=== PATIENT | female | born 1955 | race Caucasian/White ===

== ENCOUNTER 2017-08-22 10:23 | Day surgery (SDC) | payer OTHER ==
[~2017-08-22 10:23] MED LIST: CEFAZOLIN 2 GM-D5W BAG** 2 GM/50 ML ML IV ONE; CEFAZOLIN 2 GM-D5W BAG** 2 GM/50 ML ML IV SCH; KEFZOL 1 GM ONE; Lactated Ringers 1,000 ML IV ONE; Lactated Ringers 1,000 ML IV SCH; Sensorcaine 0.25% 10 ML ONE
[2017-08-22] MEDS ORDERED: Zofran 4 MG/2 ML VIAL IV ONE (10:24)
[2017-08-22] MEDS ORDERED: BRIDION 200MG/2ML IV ONE (10:24)
[2017-08-22] MEDS ORDERED: SUBLIMAZE 100 MCG/2 ML IV ONE (10:24)
[2017-08-22] MEDS ORDERED: Decadron 4 MG INJ IV ONE (10:24)
[2017-08-22] MEDS ORDERED: DIPRIVAN 200 MG/20 ML IV ONE (10:24)
[2017-08-22] MEDS ORDERED: Quelicin Fliptop 200 MG/10 ML IV ONE (10:24)
[2017-08-22] MEDS ORDERED: Zemuron 100 MG/10 ML IV ONE (10:24)
[2017-08-22] MEDS ORDERED: TORAdol 30 mg Injection IV ONE (10:24)
--- NOTE | 2017-08-22 11:26 | HP ---
DATE OF SURGERY: 08/22/2017 ADMISSION DIAGNOSIS: Ventral hernia. ANTICIPATED PROCEDURE: Repair. HISTORY OF PRESENT ILLNESS: The patient has a moderate sized ventral abdominal hernia upper mid abdomen. PAST MEDICAL HISTORY: ALLERGIES: NONE. MEDICATIONS: None. PAST SURGICAL HISTORY: Gallbladder, hysterectomy, tumor of the back. SOCIAL HISTORY: One and a half packs per day. ETOH negative. FAMILY HISTORY: Negative. PHYSICAL EXAMINATION: VITAL SIGNS: Normal. CHEST: Clear. COR: Regular. IMPRESSION: Upper epigastric ventral abdominal hernia midline just to the right. PLAN: Repair.
[2017-08-22] MEDS ORDERED: Zofran 4 MG/2 ML VIAL ONE (13:13)
--- NOTE | 2017-08-22 14:07 | OP ---
SURGERY DATE/TIME: 08/22/2017 1208 PREOPERATIVE DIAGNOSIS: Symptomatic ventral hernia. POSTOPERATIVE DIAGNOSIS: Symptomatic ventral hernia. PROCEDURE: Ventral herniorrhaphy with mesh. SURGEON: Umair Loyola M.D. ANESTHESIA: General. COMPLICATIONS: None. CONDITION: Stable. INDICATION: A patient with symptomatic ventral abdominal hernia. DESCRIPTION OF PROCEDURE: Taken to surgery. General anesthetic. Routine prep and drape. A limited 3 inch transverse incision. The sac was 4 x 4 inches. The base was 1 inch. It was taken down to the base. The omentum was incarcerated. It was taken from the adhesions on the sac and reduced. The sac was then totally removed. Hemostasis of the edge was satisfactory. A Bicomponent moderate sized mesh with absorbing inner layer was placed, was pulled up, was secured with four quadrant sutures, of intraquadrant sutures. Good approximation and hemostasis. No tension. Subcu closed with 3-0 Vicryl, skin closed with 4-0 Vicryl and Steri-Strips applied. Sterile dressing applied. The patient tolerated the procedure satisfactorily.
[2017-08-22 14:49] VITALS: PULSE 72
[2017-08-22 14:54] VITALS: BP 111/69; O2SAT 94
== END 2017-08-22 14:30 | disposition home or self-care (01) ==
LOC: SDC 10:23
PROVIDERS: ATTEND Surgery
PROC: 0WUF0JZ Supplement Abdominal Wall with Synthetic Substitute, Open Approach (ICD-10-PCS; principal; 2017-08-22)
DX: K43.9 Ventral hernia without obstruction or gangrene (principal)
CPT/HCPCS: 00832; 93005; J0330; J0690; J1100; J1885; J2405; J2704; J3010; L0625

== ENCOUNTER 2018-07-15 15:02 | Emergency (ER) | payer OTHER ==
--- NOTE | 2018-07-15 15:37 | ERPHSYRPT ---
- History of Present Illness Time Seen by Provider: 07/15/18 15:25 Source: patient, family Exam Limitations: no limitations Patient Subjective Stated Complaint: PT states "I was going to therapy and they said I had really high blood pressure." Triage Nursing Assessment: Pt alert and oriented X 3, skin pwd. PT ambulates slowly with a walker. PT able to speak in clear full sentences. Pt in no apparaent respiratory distress. Physician History: 63 y/o white female with known htn on triple medications to treat for over 2 months. pt did take her medications earlier today. pt denies headache, denies visual changes and denies cp. she denies soa. pt has mild nausea but no vomiting. pt was going to physical therapy when intake sbp was elevated. told to go to ER. Timing/Duration: today Activities at Onset: none Location: other (no cp. asymptomatic) Severity of Pain-Max: none Severity of Pain-Current: none Nitro Today/Relief: no nitro taken today Aspirin Treatment Today: no aspirin today Associated Symptoms: nausea Allergies/Adverse Reactions: escitalopram oxalate [From [employer]] Allergy (Verified 08/22/17 10:35) Nausea Home Medications: Atorvastatin Calcium [Lipitor] 20 mg PO DAILY 08/21/17 [History] Lisinopril [Zestril] 2.5 mg PO DAILY 08/21/17 [History] Metoprolol Tartrate 25 mg [Lopressor 25MG Tab] 25 mg PO BID 08/21/17 [ History] Hydralazine HCl 50 mg PO TID 07/15/18 [History] Tizanidine HCl 4 mg PO HS 07/15/18 [History] Hx Tetanus, Diphtheria Vaccination/Date Given: No Hx Influenza Vaccination/Date Given: No Hx Pneumococcal Vaccination/Date Given: No Immunizations Up to Date: Yes - Review of Systems Constitutional: No Symptoms Eyes: No Symptoms Ears, Nose, & Throat: No Symptoms Respiratory: No Symptoms Cardiac: No Symptoms Abdominal/Gastrointestinal: Nausea, No Abdominal Pain, No Vomiting, No Diarrhea Genitourinary Symptoms: No Symptoms, No Dysuria, No Frequency, No Hematuria, No Flank Pain Musculoskeletal: No Symptoms, No Back Pain, No Neck Pain Skin: No Symptoms Neurological: No Symptoms Psychological: No Symptoms, No Anxiety, No Depression Endocrine: No Symptoms, No Polyuria, No Polydipsia Hematologic/Lymphatic: No Symptoms Immunological/Allergic: No Symptoms All Other Systems: Reviewed and Negative - Past Medical History Pertinent Past Medical History: Yes Neurological History: No Pertinent History ENT History: No Pertinent History Cardiac History: Hypertension Respiratory History: No Pertinent History Endocrine Medical History: No Pertinent History Musculoskeletal History: Osteoarthritis GI Medical History: GERD History: No Pertinent History Psycho-Social History: Anxiety Female Reproductive Disorders: Abnormal Uterine Bleeding - Past Surgical History Past Surgical History: Yes Neuro Surgical History: No Pertinent History Cardiac: No Pertinent History Respiratory: No Pertinent History Gastrointestinal: Cholecystectomy Musculoskeletal: Other Female Surgical History: Hysterectomy, Dilation & Curettage, Other Other Surgical History: exc. back tumor,exc. face moles, - Social History Smoking Status: Current every day smoker How long have you smoked: years Exposure to second hand smoke: Yes Drug Use: none Patient Lives Alone: No - Female History Hx Now: No - Nursing Vital Signs Nursing Vital Signs: Initial Vital Signs Temperature 98.7 F 07/15/18 15:13 Pulse Rate 66 07/15/18 15:13 Respiratory Rate 16 07/15/18 15:13 Blood Pressure 221/99 07/15/18 15:13 O2 Sat by Pulse Oximetry 95 07/15/18 15:13 Pain Scale Pain Intensity 0 - Physical Exam General Appearance: no apparent distress, alert, anxiety Eye Exam: PERRL/EOMI, eyes nml inspection Ears, Nose, Throat Exam: normal ENT inspection, TMs normal Neck Exam: normal inspection, non-tender, supple, full range of motion Respiratory Exam: normal breath sounds, lungs clear, No chest tenderness, No respiratory distress, No airway intact, No accessory muscle use, No rhonchi, No wheezing, No stridor Cardiovascular Exam: regular rate/rhythm, normal heart sounds, normal peripheral pulses Gastrointestinal/Abdomen Exam: soft, normal bowel sounds, No tenderness, No guarding, No rebound Pelvic Exam: not done Rectal Exam: not done Back Exam: normal inspection, normal range of motion, No CVA tenderness, No vertebral tenderness Extremity Exam: normal inspection, normal range of motion, pelvis stable Neurologic Exam: alert, oriented x 3, cooperative, confectionery maker II-XII nml as tested Skin Exam: normal color, warm, dry Lymphatic Exam: No adenopathy SpO2 Interpretation: normal SpO2: 95 Oxygen Delivery: Room Air - Course Nursing assessment & vital signs reviewed: Yes EKG Interpreted by Me: RATE (61), Sinus Rhythm, NORMAL AXIS, NORMAL INTERVALS, NORMAL QRS, NORMAL ST-T Ordered Tests: Active Orders 24 hr Category Date Time Status EKG-ER Only STAT Care 07/15/18 15:39 Active IV Insertion STAT Care 07/15/18 15:39 Active CBC W DIFF Stat Lab 07/15/18 15:39 Completed CMP Stat Lab 07/15/18 16:14 Completed Medication Summary Discontinued Medications Generic Name Dose Route Start Last Admin Trade Name Jarek PRN Reason Stop Dose Admin Bacitracin Zinc 0.9 gm 07/15/18 16:32 Baciguent Packet TP 07/15/18 16:33 STAT ONE Hydralazine HCl 10 mg 07/15/18 15:41 07/15/18 15:47 Apresoline 20 Mg/Ml Inj IV 07/15/18 15:42 10 mg STAT ONE Administration Hydralazine HCl Confirm 07/15/18 15:45 Apresoline 20 Mg/Ml Inj Administered 07/15/18 15:46 Dose 20 mg .ROUTE .STK-MED ONE Lab/Rad Data: Laboratory Result Diagrams 07/15/18 15:39 07/15/18 16:14 Laboratory Results 07/15/18 07/15/18 Range/Units 16:14 15:39 WBC 6.7 (4.0-10.5) K/mm3 RBC 5.30 (4.1-5.4) M/mm3 Hgb 15.8 (12.0-16.0) gm/dl Hct 47.4 H (35-47) % MCV 89.4 (78-100) fl MCH 29.8 (26-32) pg MCHC 33.3 (32-36) g/dl RDW 15.7 H (11.5-14.0) % Plt Count 296 (150-450) K/mm3 MPV 10.5 H (6-9.5) fl Gran % 57.5 (36.0-66.0) % Eos # (Auto) 0.40 (0-0.5) Absolute Lymphs (auto) 1.57 (1.0-4.6) Absolute Monos (auto) 0.86 (0.0-1.3) Lymphocytes % 23.5 L (24.0-44.0) % Monocytes % 12.9 H (0.0-12.0) % Eosinophils % 6.0 H (0.00-5.0) % Basophils % 0.1 (0.0-0.4) % Absolute Granulocytes 3.83 (1.4-6.9) Basophils # 0.01 (0-0.4) Sodium 141 (137-145) mmol/L Potassium 3.8 (3.5-5.1) mmol/L Chloride 104 (98-107) mmol/L Carbon Dioxide 26 (22-30) mmol/L Anion Gap 14.6 (5-15) MEQ/L BUN 13 (7-17) mg/dL Creatinine 0.63 (0.52-1.04) mg/dL Estimated GFR > 60.0 ML/MIN Glucose 96 (74-106) mg/dL Calcium 9.9 (8.4-10.2) mg/dL Total Bilirubin 0.40 (0.2-1.3) mg/dL AST 22 (14-36) U/L ALT 63 H (0-35) U/L Alkaline Phosphatase 88 (38-126) U/L Serum Total Protein 6.7 (6.3-8.2) g/dL Albumin 4.3 (3.5-5.0) g/dL - Progress Progress: improved, re-examined Air Movement: good Progress Note: 07/15/18 16:34 pt re examined. no headache, no cp. no visual changes. Blood Culture(s) Obtained: No Antibiotics given: No Counseled pt/family regarding: lab results, diagnosis, need for follow-up - Departure Time of Disposition: 16:35 Departure Disposition: Home Clinical Impression: Hypertensive emergency Clinical Impression: (Ruled Out): Hypertensive crisis Condition: Good Critical Care Time: Yes Critical Care Time(excluding separately billable procedures): 30-74 minutes Referrals: VARUN RICHARDSON [Primary Care Provider] - Additional Instructions: take your medication as prescribed. follow up with prescribing doctor tomorrow for further management
[2018-07-15] MEDS ORDERED: APRESOLINE 20 MG/ML INJ IV ONE (15:41)
[2018-07-15] MEDS ORDERED: APRESOLINE 20 MG/ML INJ ONE (15:45)
[2018-07-15 16:12] LABS: BASOPHIL % 0.1 % (0.0-0.4); Basophil (Absolute #) 0.01 (0-0.4); Granulocyte Absolute (ANC) 3.83 (1.4-6.9); Granulocytes % 57.5 % (36.0-66.0); Hematocrit 47.4 % (35-47); Hemoglobin 15.8 gm/dl (12.0-16.0); Lymphocyte (Absolute #) 1.57 (1.0-4.6); Lymphocytes % 23.5 % (24.0-44.0); Mean Cell Volume 89.4 fl (78-100); Mean Corpuscular Hemoglobin 29.8 pg (26-32); Mean Corpuscular Hgb Concent. 33.3 g/dl (32-36); Mean Platelet Volume 10.5 fl (6-9.5); Monocyte (Absolute #) 0.86 (0.0-1.3); Monocytes % 12.9 % (0.0-12.0); Platelet Count 296 K/mm3 (150-450); Red Cell Distribution Width 15.7 % (11.5-14.0); White Blood Count 6.7 K/mm3 (4.0-10.5)
[2018-07-15 16:24] LABS: ALBUMIN 4.3 g/dL (3.5-5.0); ALKALINE PHOSPHATASE 88 U/L (38-126); ANION GAP 14.6 MEQ/L (5-15); BLOOD UREA NITROGEN 13 mg/dL (7-17); CHLORIDE 104 mmol/L (98-107); Calcium 9.9 mg/dL (8.4-10.2); Carbon Dioxide 26 mmol/L (22-30); Creatinine 1 0.63 mg/dL (0.52-1.04); Glucose 96 mg/dL (74-106); Potassium 3.8 mmol/L (3.5-5.1); SGOT/AST 22 U/L (14-36); SGPT/ALT 63 U/L (0-35); SODIUM 141 mmol/L (137-145); Total Protein 6.7 g/dL (6.3-8.2)
[2018-07-15] MEDS ORDERED: BACIGUENT PACKET TP ONE (16:32)
[2018-07-15 16:41] VITALS: BP 167/80
[2018-07-15 16:51] VITALS: PULSE 69; O2SAT 98
== END 2018-07-15 16:52 | disposition home or self-care (01) ==
LOC: ED 15:02
DX: I16.0 Hypertensive urgency (principal); Z79.899 Other long term (current) drug therapy
CPT/HCPCS: 36000; 36415; 80053; 85025; 93005; 96374; 99284; J0360

== ENCOUNTER 2019-04-26 09:05 | Emergency (ER) | payer OTHER, SELFPAY ==
[2019-04-26] MEDS ORDERED: DUONEB 0.5-3 MG/3 ml Neb IH ONE ×2 (09:34→10:49)
[2019-04-26 09:41] LABS: BASOPHIL % 0.1 % (0.0-0.4); Basophil (Absolute #) 0.01 (0-0.4); Eosinophil % 0.7 % (0.00-5.0); Eosinophil (Absolute #) 0.07 (0-0.5); Granulocyte Absolute (ANC) 8.35 (1.4-6.9); Granulocytes % 81.3 % (36.0-66.0); Hematocrit 51.2 % (35-47); Lymphocytes % 13.6 % (24.0-44.0); Mean Cell Volume 90.5 fl (78-100); Mean Corpuscular Hgb Concent. 33.2 g/dl (32-36); Mean Platelet Volume 10.8 fl (6-9.5); Monocyte (Absolute #) 0.44 (0.0-1.3); Monocytes % 4.3 % (0.0-12.0); Platelet Count 271 K/mm3 (150-450); Red Blood Count 5.66 M/mm3 (4.1-5.4); Red Cell Distribution Width 14.5 % (11.5-14.0); White Blood Count 10.3 K/mm3 (4.0-10.5)
[2019-04-26 09:42] LABS: INR 1.02 (0.8-3.0); PROTIME 11.5 SECONDS (9.95-12.35)
[2019-04-26 09:45] LABS: PTT 38.8 SECONDS (25.3-37.0)
[2019-04-26] MEDS ORDERED: Sodium Chloride 0.9% 1000 ML 1,000 ML IV SCH (09:45)
[2019-04-26] MEDS ORDERED: Sodium Chloride 0.9% 1000 ML 1,000 ML ONE (09:50)
[2019-04-26 10:01] LABS: ALBUMIN 4.7 g/dL (3.5-5.0); ALKALINE PHOSPHATASE 87 U/L (38-126); ANION GAP 19.3 MEQ/L (5-15); BLOOD UREA NITROGEN 16 mg/dL (7-17); CHLORIDE 108 mmol/L (98-107); Calcium 10.5 mg/dL (8.4-10.2); Carbon Dioxide 21 mmol/L (22-30); Creatinine 1 0.69 mg/dL (0.52-1.04); Glucose 131 mg/dL (74-106); NT PRO BNP 149 pg/mL (0-900); Potassium 3.8 mmol/L (3.5-5.1); SGOT/AST 16 U/L (14-36); SGPT/ALT 22 U/L (0-35); SODIUM 144 mmol/L (137-145); Total Protein 7.3 g/dL (6.3-8.2)
[2019-04-26 10:28] LABS: INFLUENZA A NEGATIVE (NEGATIVE); INFLUENZA B NEGATIVE (NEGATIVE); RESPIRATORY SYNCTIAL VIRUS NEGATIVE (Negative)
--- NOTE | 2019-04-26 11:42 | ERPHSYRPT ---
- History of Present Illness Time Seen by Provider: 04/26/19 09:20 Source: patient Exam Limitations: clinical condition Patient Subjective Stated Complaint: SOB, feeling like indigestion Triage Nursing Assessment: pt denies pain, yet feels a sense of fullness in her chest Physician History: PATIENT COMPLAINS OF A ACUTE ONSET OF DYSPNEA WHILE LYING IN BED, OCCASIONAL COUGH CLEAR SPUTUM. DENIES EXERTIONAL DYSPNEA, CHEST PAIN, FEVER, Timing/Duration: today Activities at Onset: rest Severity of Dyspnea-Max: moderate Severity of Dyspnea-Current: moderate Possible Cause: occasional episodes Modifying Factors: Improves With: nothing Associated Symptoms: cough International travel in last 2 weeks: No Allergies/Adverse Reactions: escitalopram oxalate [From [employer]] Allergy (Verified 08/22/17 10:35) Nausea Home Medications: Atorvastatin Calcium [Lipitor] 20 mg PO DAILY 08/21/17 [History] Lisinopril [Zestril] 2.5 mg PO DAILY 08/21/17 [History] Metoprolol Tartrate 25 mg [Lopressor 25MG Tab] 25 mg PO BID 08/21/17 [ History] Hydralazine HCl 50 mg PO TID 07/15/18 [History] Tizanidine HCl 4 mg PO HS 07/15/18 [History] Hx Tetanus, Diphtheria Vaccination/Date Given: No Hx Influenza Vaccination/Date Given: No Hx Pneumococcal Vaccination/Date Given: No - Review of Systems Constitutional: No Fever, No Chills Eyes: No Symptoms Ears, Nose, & Throat: No Symptoms Respiratory: Cough, Dyspnea Cardiac: No Symptoms, No Chest Pain, No Edema, No Syncope Abdominal/Gastrointestinal: No Symptoms, No Abdominal Pain, No Nausea, No Vomiting, No Diarrhea Genitourinary Symptoms: No Symptoms, No Dysuria Musculoskeletal: No Symptoms, No Back Pain, No Neck Pain Skin: No Symptoms, No Rash Neurological: No Dizziness, No Focal Weakness, No Sensory Changes Psychological: No Symptoms Endocrine: No Symptoms All Other Systems: Reviewed and Negative - Past Medical History Pertinent Past Medical History: Yes Neurological History: No Pertinent History ENT History: No Pertinent History Cardiac History: Hypertension Respiratory History: No Pertinent History Endocrine Medical History: No Pertinent History Musculoskeletal History: Osteoarthritis GI Medical History: GERD History: No Pertinent History Psycho-Social History: Anxiety, Panic Disorder Female Reproductive Disorders: Abnormal Uterine Bleeding - Past Surgical History Past Surgical History: Yes Neuro Surgical History: No Pertinent History Cardiac: No Pertinent History Respiratory: No Pertinent History Gastrointestinal: Cholecystectomy Musculoskeletal: Other Female Surgical History: Hysterectomy, Dilation & Curettage, Other Other Surgical History: exc. back tumor,exc. face moles, - Social History Smoking Status: Current every day smoker How long have you smoked: years Exposure to second hand smoke: Yes Drug Use: none Patient Lives Alone: No - Female History Hx Last Menstrual Period: post Hx Now: No - Nursing Vital Signs Nursing Vital Signs: Initial Vital Signs Temperature 97.7 F 04/26/19 09:06 Pulse Rate 85 04/26/19 09:06 Respiratory Rate 22 04/26/19 09:06 Blood Pressure 173/94 04/26/19 09:06 O2 Sat by Pulse Oximetry 95 04/26/19 09:06 Pain Scale Pain Intensity 0 - Physical Exam General Appearance: no apparent distress, alert Eye Exam: PERRL/EOMI Ears, Nose, Throat Exam: hearing grossly normal Neck Exam: normal inspection, supple Respiratory Exam: normal breath sounds, lungs clear Cardiovascular/Chest Exam: normal heart sounds, regular rate/rhythm Abdominal/Gastrointestinal Exam: soft, No tenderness, No distention, No mass Extremity Exam: non-tender, normal range of motion, normal inspection, no calf tenderness, no pedal edema Peripheral Pulses Exam: carotid (R): 2+, carotid (L): 2+, femoral (R): 2+, femoral (L): 2+, dorsalis-pedis (R): 2+, dorsalis-pedis (L): 2+ Neurologic Exam: alert, oriented x 3, cooperative, sales apprentice II-XII nml as tested, sensation nml, No motor deficits Skin Exam: normal color, warm, No dry SpO2 Interpretation: normal SpO2: 97 - Course EKG Interpreted by Me: RATE, Sinus Rhythm, NORMAL AXIS - Radiology Exams Chest X-ray Interpretation: Interpreted by me, Negative Ordered Tests: Active Orders 24 hr Category Date Time Status Sports Lawyer STAT Care 04/26/19 09:35 Active EKG-ER Only STAT Care 04/26/19 09:34 Active IV Insertion STAT Care 04/26/19 09:34 Active Oxygen-ED Only Nasal Cannula 2 lpm Care 04/26/19 09:34 Active CHEST 1 VIEW (PORTABLE) Stat Exams 04/26/19 10:18 Taken BLOOD CULTURE Stat Lab 04/26/19 09:45 Received CBC W DIFF Stat Lab 04/26/19 09:38 Completed CMP Stat Lab 04/26/19 09:38 Completed D-DIMER QUANTITATION Stat Lab 04/26/19 09:38 Completed MAGNESIUM Stat Lab 04/26/19 09:38 Completed NT PRO BNP Stat Lab 04/26/19 09:38 Completed PROTIME WITH INR Stat Lab 04/26/19 09:38 Completed PTT Stat Lab 04/26/19 09:38 Completed TROPONIN Q3H Lab 04/26/19 09:38 Completed TROPONIN Q3H Lab 04/26/19 12:45 Ordered TROPONIN Q3H Lab 04/26/19 15:45 Ordered TROPONIN Q3H Lab 04/26/19 18:45 Ordered TROPONIN Q3H Lab 04/26/19 21:45 Ordered UA W/RFX UR CULTURE Stat Lab 04/26/19 09:34 Uncollected Peak Expiratory Flow Rate ONCE RT 04/26/19 09:34 Completed Respiratory Therapy Assessment DAILY RT 04/26/19 10:55 Completed Medication Summary Generic Name Dose Route Start Last Admin Trade Name Freq PRN Reason Stop Dose Admin Sodium Chloride 1,000 mls @ 100 mls/hr 04/26/19 09:45 04/26/19 10:01 Sodium Chloride 0.9% 1000 Ml IV 05/26/19 09:44 100 mls/hr .Q10H ARIE Administration Discontinued Medications Generic Name Dose Route Start Last Admin Trade Name Freq PRN Reason Stop Dose Admin Albuterol/Ipratropium 3 ml 04/26/19 09:34 04/26/19 10:55 Duoneb 0.5-3 Mg/3 Ml Neb IH 04/26/19 09:35 3 ml STAT ONE Administration Albuterol/Ipratropium Confirm 04/26/19 10:49 Duoneb 0.5-3 Mg/3 Ml Neb Administered 04/26/19 10:50 Dose 3 ml IH .STK-MED ONE Lab/Rad Data: Laboratory Result Diagrams 04/26/19 09:38 04/26/19 09:38 Laboratory Results 04/26/19 04/26/19 04/26/19 Range/Units 09:40 09:38 09:38 WBC (4.0-10.5) K/mm3 RBC (4.1-5.4) M/mm3 Hgb (12.0-16.0) gm/dl Hct (35-47) % MCV (78-100) fl MCH (26-32) pg MCHC (32-36) g/dl RDW (11.5-14.0) % Plt Count (150-450) K/mm3 MPV (6-9.5) fl Gran % (36.0-66.0) % Eos # (Auto) (0-0.5) Absolute Lymphs (auto) (1.0-4.6) Absolute Monos (auto) (0.0-1.3) Lymphocytes % (24.0-44.0) % Monocytes % (0.0-12.0) % Eosinophils % (0.00-5.0) % Basophils % (0.0-0.4) % Absolute Granulocytes (1.4-6.9) Basophils # (0-0.4) PT 11.5 (9.95-12.35) SECONDS INR 1.02 (0.8-3.0) APTT 38.8 H (25.3-37.0) SECONDS D-Dimer 492 (215-500) ng/mL Sodium (137-145) mmol/L Potassium (3.5-5.1) mmol/L Chloride (98-107) mmol/L Carbon Dioxide (22-30) mmol/L Anion Gap (5-15) MEQ/L BUN (7-17) mg/dL Creatinine (0.52-1.04) mg/dL Estimated GFR ML/MIN Glucose (74-106) mg/dL Calcium (8.4-10.2) mg/dL Magnesium (1.6-2.3) mg/dL Total Bilirubin (0.2-1.3) mg/dL AST (14-36) U/L ALT (0-35) U/L Alkaline Phosphatase (38-126) U/L Troponin I < 0.012 (0.000-0.034) ng/mL NT-Pro-B Natriuret Pep (0-900) pg/mL Serum Total Protein (6.3-8.2) g/dL Albumin (3.5-5.0) g/dL Influenza Type A Ag NEGATIVE (NEGATIVE) Influenza Type B Ag NEGATIVE (NEGATIVE) RSV (PCR) NEGATIVE (Negative) 04/26/19 04/26/19 Range/Units 09:38 09:38 WBC 10.3 (4.0-10.5) K/mm3 RBC 5.66 H (4.1-5.4) M/mm3 Hgb 17.0 H (12.0-16.0) gm/dl Hct 51.2 H (35-47) % MCV 90.5 (78-100) fl MCH 30.0 (26-32) pg MCHC 33.2 (32-36) g/dl RDW 14.5 H (11.5-14.0) % Plt Count 271 (150-450) K/mm3 MPV 10.8 H (6-9.5) fl Gran % 81.3 H (36.0-66.0) % Eos # (Auto) 0.07 (0-0.5) Absolute Lymphs (auto) 1.40 (1.0-4.6) Absolute Monos (auto) 0.44 (0.0-1.3) Lymphocytes % 13.6 L (24.0-44.0) % Monocytes % 4.3 (0.0-12.0) % Eosinophils % 0.7 (0.00-5.0) % Basophils % 0.1 (0.0-0.4) % Absolute Granulocytes 8.35 H (1.4-6.9) Basophils # 0.01 (0-0.4) PT (9.95-12.35) SECONDS INR (0.8-3.0) APTT (25.3-37.0) SECONDS D-Dimer (215-500) ng/mL Sodium 144 (137-145) mmol/L Potassium 3.8 (3.5-5.1) mmol/L Chloride 108 H (98-107) mmol/L Carbon Dioxide 21 L (22-30) mmol/L Anion Gap 19.3 H (5-15) MEQ/L BUN 16 (7-17) mg/dL Creatinine 0.69 (0.52-1.04) mg/dL Estimated GFR > 60.0 ML/MIN Glucose 131 H (74-106) mg/dL Calcium 10.5 H (8.4-10.2) mg/dL Magnesium 2.0 (1.6-2.3) mg/dL Total Bilirubin 0.50 (0.2-1.3) mg/dL AST 16 (14-36) U/L ALT 22 (0-35) U/L Alkaline Phosphatase 87 (38-126) U/L Troponin I (0.000-0.034) ng/mL NT-Pro-B Natriuret Pep 149 (0-900) pg/mL Serum Total Protein 7.3 (6.3-8.2) g/dL Albumin 4.7 (3.5-5.0) g/dL Influenza Type A Ag (NEGATIVE) Influenza Type B Ag (NEGATIVE) RSV (PCR) (Negative) - Progress Progress: improved Progress Note: 04/26/19 11:44 DUONEB AEROSOL TX Antibiotics given: No Counseled pt/family regarding: lab results, diagnosis, rad results - Departure Departure Disposition: Home Clinical Impression: ACUTE BRONCHITIS Condition: Stable Critical Care Time: No Referrals: VARUN RICHARDSON [Primary Care Provider] - Additional Instructions: ANTIBIOTIC CEFDINIR 300MG TWICE DAILY FOR 7 DAYS. VENTOLIN INHALER 2 PUFFS EVERY 4 HOURS NEEDED. CONSULT YOUR PRIMARY CARE PROVIDER FOR PULMONARY FUNCTION STUDIES. Prescriptions: Albuterol 8 gm Mdi Hfa [Ventolin Hfa MDI] 2 puffs IH Q4HPRN PRN #1 [email or web address] PRN Reason: DIFFICULTY BREATHING Cefdinir [Omnicef] 300 mg PO BID #10 capsule
[2019-04-26 11:58] LABS: Appearance CLEAR (CLEAR); Bacteria RARE /HPF (NEGATIVE); Bilirubin NEGATIVE (NEGATIVE); Blood NEGATIVE Ery/ul (0-5); Epithelial Cells RARE /HPF (FEW); Glucose NEGATIVE (NEGATIVE); Ketones TRACE (NEGATIVE); Leukocyte Esterase NEGATIVE (NEGATIVE); Mucus SLIGHT /HPF (NEGATIVE); Nitrite NEGATIVE (NEGATIVE); Protein,Urine Dip NEGATIVE (Negative); Specific Gravity 1.024 (1.005-1.025); Urobilinogen NEGATIVE mg/dL (0-1); WBC 0-2 /HPF (0-5)
[2019-04-26 12:07] VITALS: BP 126/78; PULSE 72; O2SAT 96
--- NOTE | 2019-04-26 20:16 | XRAY ---
Indication: Dyspnea. Comparison: May 06, 2018. Portable chest remains clear. Heart and mediastinal structures within normal limits. Bony thorax intact again with mild osteopenia, degenerative changes, and scoliosis. No new/acute findings.
== END 2019-04-26 12:13 | disposition home or self-care (01) ==
LOC: ED 09:05
DX: J20.9 Acute bronchitis, unspecified (principal)
CPT/HCPCS: 36000; 36415; 71045; 80053; 81001; 83735; 83880; 84484; 85025; 85379; 85610; 85730; 87040; 87631; 93005; 93041; 94150; 94640; 96360; 96361; 96374; 99284; A9270-GY

== ENCOUNTER 2020-06-14 06:05 | Day surgery (SDC) | payer MEDICARE, OTHER ==
[2020-06-14] MEDS ORDERED: Lactated Ringers 1,000 ML IV ONE ×2 (06:45→09:42)
[2020-06-14] MEDS ORDERED: Lactated Ringers 1,000 ML IV SCH (07:00)
[2020-06-14] MEDS ORDERED: DIPRIVAN 200 MG/20 ML IV ONE ×2 (08:08→08:38)
[2020-06-14 09:41] VITALS: BP 155/91; PULSE 62; O2SAT 96
--- NOTE | 2020-06-14 15:10 | OP ---
SURGERY DATE/TIME: 06/14/2020814 PREOPERATIVE DIAGNOSIS: Positive Cologuard. POSTOPERATIVE DIAGNOSES: 1) Hiatal hernia. 2) Moderate NSAID gastritis. 3) Normal colon. PROCEDURES: 1) Esophagogastroduodenoscopy. 2) Colonoscopy. SURGEON: Dr. Velazco. ANESTHESIA: Medications were given by the anesthesia department. HISTORY: The patient is a 64 year old white female presenting now for positive Cologuard. The patient reports she has never had any endoscopic evaluation previously. She was felt the need to have endoscopic evaluation at this time. She was appraised of the risks of the procedure including the risk of perforation, phlebitis, untoward reaction to medication, bleeding and missed lesions. The patient verbalized her understanding and desired to have the procedure performed. DESCRIPTION OF PROCEDURE: The patient was given the medications by the anesthesia department. She had continuous pulse oximetry, ECG monitoring, intermittent blood pressure monitoring and tidal CO2 monitoring during the examination. She was placed in the left lateral decubitus position. A bite block was placed and the flexible Olympus gastroscope was used to intubate the oropharynx. A view of the larynx was obtained and was normal. The scope was easily introduced in the esophagus which appeared to be essentially normal throughout its length to the distal portion where there did appear to be the presence of hiatal hernia. The scope was passed into the stomach where normal gastric rugal folds were seen and these distended nicely with insufflation of air. The scope was passed along the greater curvature of the stomach where there appeared to be an NSAID-type gastropathy pattern apparent. No erosions or ulcerations were noted otherwise. The pylorus encountered and intubated. The duodenum inspected and found to be somewhat erythematous and inflamed as well but again without ulcerations. The scope is withdrawn towards the stomach. A retroflex view was obtained of the lesser curvature, fundus and cardia regions of the stomach and these appeared to be normal other than the aforementioned hiatal hernia. The scope was then removed from the patient. Next, a digital rectal examination was performed and revealed normal anal sphincter tone and no masses. The flexible Olympus pediatric colonoscope was used to intubate the rectum. A view of the colon was developed sequentially to the cecum. Upon insertion and withdrawal, including a retroflex view in the rectum, no mucosal lesions were encountered. The scope was removed from the patient who tolerated the procedure well and was sent back to OP recovery in good condition. The prep was noted to be fair with liquid stool throughout the colon.
== END 2020-06-14 09:45 | disposition home or self-care (01) ==
LOC: SDC 06:05
PROVIDERS: ATTEND Family Medicine
DX: Z12.11 Encounter for screening for malignant neoplasm of colon (principal); R19.5 Other fecal abnormalities; K44.9 Diaphragmatic hernia without obstruction or gangrene; K29.70 Gastritis, unspecified, without bleeding
CPT/HCPCS: J2704